=== PATIENT | male | born 1975 | race Caucasian/White ===

== ENCOUNTER → 2016-08-13 | Outpatient (CLI) | payer OTHER ==
--- NOTE | 2016-08-14 12:19 | SLEEP ---
DATE OF STUDY: 08/13/2016 REFERRING PHYSICIAN: Dr. Sergei Lui, nurse practitioner. This patient is a 40-year-old who weighs 240 pounds with a BMI of 32. The patient's [place] score was 10. Home sleep study was performed by [facility]. The total recording time was 474 minutes. During the night study, the patient had no central apneas or mixed apneas. There were 24 obstructive apneas and 29 hypopneas. The patient's apnea hypopnea index was 7 per hour with a supine index of 27 per hour. The patient's flow sensor was offered at least 2 hours during the testing time, which may have underestimated the severity of sleep apnea. Nocturnal oximetry study revealed an average oxygen saturation 91% with the lowest of 73%. 52 minutes were spent in oxygen saturation less than 90%. Mean heart rate was 65 beats per minute. IMPRESSION: 1. Mild sleep apnea-hypopnea syndrome with moderate increase during supine sleep. The home sleep study may have underestimated the severity of sleep apnea, as the flow sensor was off at least 2 hours during the recording time. 2. Severe nocturnal hypoxia secondary to obstructive sleep apnea. RECOMMENDATIONS: 1. The patient would benefit from treatment of the patient's sleep apnea with either oral appliance or a trial of CPAP titration. 2. If patient undergoes CPAP titration, then he should be followed up in 4-6 weeks to assess compliance with CPAP and to document clinical improvement. 3. Weight loss is strongly advised. 4. Avoid [employer] depressants. 5. Caution regarding driving until symptoms of sleep apnea resolve with the above recommendations. JUVENAL BENSON MD DR: OLYA/sheila JOB#: [id number] / [id number] HERMELINDA Galvez MTDD
== END | disposition home or self-care (01) ==
LOC: RT 10:00
PROVIDERS: ATTEND Nurse Practitioner Family
DX: G47.33 Obstructive sleep apnea (adult) (pediatric) (principal)
CPT/HCPCS: G0399

== ENCOUNTER → 2017-01-26 | Outpatient (CLI) | payer OTHER ==
--- NOTE | 2017-01-26 10:34 | KCIC ---
EXAM: Chest, 2 views. HISTORY: Shortness of breath. COMPARISON: 04/09/2015 FINDINGS: Frontal and lateral views of the chest are obtained. There is no infiltrate, effusion or pneumothorax. There is stable hilar prominence due to prominent central pulmonary vascular shadows. The heart is normal in size. IMPRESSION: No acute pulmonary finding. Electronically signed by: Lelo Ortega MD (01/26/2017 10:30 AM) [id number]
== END | disposition home or self-care (01) ==
LOC: KCIC 09:51
PROVIDERS: ATTEND Nurse Practitioner Family
DX: R06.02 Shortness of breath (principal)
CPT/HCPCS: 71020